=== PATIENT | female | born 1980 | race Asian ===

== ENCOUNTER 2021-06-28 16:51 | Emergency (ER) | payer OTHER ==
[~2021-06-28] VITALS: Ht 162.6 cm; Wt 71.8 kg
[2021-06-28 19:13] VITALS: BP 124/63
[2021-06-28] MEDS ORDERED: PERTUSS(ACELL),DIPH,TET VAC/PF 0.5 ML SYRINGE IM. ONE (19:15)
[2021-06-28] MEDS ORDERED: LIDOCAINE 1% 10 ML VIAL ID ONE (19:15)
[2021-06-28] MEDS ORDERED: SODIUM CHLORIDE 0.9% 250 ML IRRIG SOLUTION BOTTLE IRRIG ONE (19:15)
== END 2021-06-28 20:52 | disposition home or self-care (01) ==
LOC: EMS 17:00
DX: S61.412A Laceration without foreign body of left hand, initial encounter (principal); W26.0XXA Contact with knife, initial encounter; Y93.89 Activity, other specified; Y92.89 Other specified places as the place of occurrence of the external cause; Y99.8 Other external cause status
CPT/HCPCS: 12001; 90471; 90715; 99283; J3490